=== PATIENT | male | born 1975 | race Caucasian/White ===

== ENCOUNTER 2016-12-15 10:45 | Emergency (ER) | payer OTHER ==
[2016-12-15 11:00] VITALS: BP 133/75; PULSE 96; TEMP 99.3; BMI 38.0
[2016-12-15] MEDS ORDERED: KETOROLAC TROMETHAMINE 60 MG/2 ML VIAL IM ONE (11:09)
[2016-12-15] MEDS ORDERED: guaiFENesin/CODEINE 10 ML UNIT-DOSE CUPS PO ONE (11:10)
[2016-12-15] MEDS ORDERED: guaiFENesin/CODEINE 10 ML UNIT-DOSE CUPS ONE (11:11)
[2016-12-15] MEDS ORDERED: KETOROLAC TROMETHAMINE 60 MG/2 ML VIAL ONE (11:11)
--- NOTE | 2016-12-15 11:15 | PDOC ---
History of Present Illness - General Chief Complaint: Cold Symptoms Stated Complaint: COUGH, FEVER, CHILLS, BODY ACHES Time Seen by Provider: 12/15/16 11:03 - History of Present Illness Initial Comments: 12/15/16 11:16 Chief complaint: Fever History of present illness: Patient with high fevers yesterday accompanied by bodyache, headache, head and nasal congestion, nonproductive cough. States that "everyone at work is sick". Did not receive the flu shot Review of systems: No chest pain, shortness of breath, abdominal pain, nausea, vomiting, diarrhea, visual or focal neurologic symptoms, unsteadiness of gait. Past medical history: Healthy male, no history of serious medical or surgical illness, hospitalizations, or home medication Social/family history: No tobacco alcohol or nonprescription drugs. Fully active and without disability Family history: Reviewed and noncontributory Physical exam: Alert and oriented 3, well-developed well-nourished, nasal congestion, nonproductive cough, but no significant distress, cooperative Afebrile, vital signs normal PERRLA 4 mm, fundi benign, nasal congestion with watery discharge, ears clear, throat mildly injected without exudate swelling or mass. Neck supple without bruit mass or nodes Lungs clear with full breath sounds throughout bilaterally. No wheezes rales or rhonchi CV S1 and S2 normal without murmur rub or gallop pulses full and symmetric no JVD or edema Abdomen benign Skin clear, no rash, adequate turgor and what mucous membranes Extremities no CCE Neurological intact Impression: Viral syndrome, probably influenza. Plan: Since symptoms are of approximately 24-hour duration, Tamiflu is indicated. The congestion and cough suppressant for comfort. Rest and fluids at home and follow-up if condition changes ER, otherwise primary physician 2-3 days. Past History - Past Medical History Allergies/Adverse Reactions: Allergies Allergy/AdvReac Type Severity Reaction Status Date / Time No Known Allergies Allergy Verified 12/15/16 10:51 Home Medications: Ambulatory Orders Ibuprofen 800 mg PO TID PRN #20 tablet 12/15/16 Oseltamivir Phosphate [Tamiflu] 75 mg PO BID #10 capsule 12/15/16 Promethazine/Phenyleph/Codeine [Phenergan VC+Codeine Syrup] 5 - 10 ml PO TID PRN #90 ml MDD 6 12/15/16 Suicide Attempt (Hx): No - Surgical History Abdominal Surgery: Yes (appendectomy as a child) Appendectomy: Yes - Psycho/Social/Smoking Cessation Hx Anxiety: No Suicidal Ideation: No Smoking History: Current some day smoker Have you smoked in the past 12 months: Yes Number of Cigarettes Smoked Daily: 0 Information on smoking cessation initiated: Yes 'Breaking Loose' booklet given: 12/15/16 Hx Alcohol Use: No Drug/Substance Use Hx: No Substance Use Type: None Respiratory Specific PMHX - Complaint Specific PMHX Angina: No Pulmonary Embolus: No *Physical Exam - Vital Signs Last Vital Signs Temp Pulse Resp BP Pulse Ox 99.3 F 96 H 15 133/75 97 12/15/16 10:50 12/15/16 10:50 12/15/16 10:50 12/15/16 10:50 12/15/16 10:50 Medical Decision Making - Medical Decision Making 12/15/16 11:35 Patient improved after administration of Toradol. Headache resolved. Body aches resolved. Rest, fluids, and medication as directed. Fully ambulatory and in no pain or other discomfort upon discharge with his to follow-up as directed. *DC/Admit/Observation/Transfer Diagnosis at time of Disposition: Influenza - Discharge Dispostion Disposition: HOME Condition at time of disposition: Improved Admit: No - Prescriptions Prescriptions: Promethazine/Phenyleph/Codeine [Phenergan VC+Codeine Syrup] 5 - 10 ml PO TID PRN #90 ml MDD 6 PRN Reason: congestion, cough Oseltamivir Phosphate [Tamiflu] 75 mg PO BID #10 capsule - Referrals Referrals: Nallely Mckinney MD [Staff Physician] - 2 Days - Patient Instructions Printed Discharge Instructions: DI for Viral Upper Respiratory Infection -- Adult - Post Discharge Activity Work/School Note: Back to Work
== END 2016-12-15 11:54 | disposition home or self-care (01) ==
LOC: FER 10:45
PROC: 3E0233Z Introduction of Anti-inflammatory into Muscle, Percutaneous Approach (ICD-10-PCS; principal; 2016-12-15)
DX: J11.1 Influenza due to unidentified influenza virus with other respiratory manifestations (principal); F17.210 Nicotine dependence, cigarettes, uncomplicated
CPT/HCPCS: 99281-25

== ENCOUNTER 2016-12-26 15:48 | Emergency (ER) | payer OTHER ==
--- NOTE | 2016-12-26 16:04 | PDOC ---
History of Present Illness <Merary Landeros - Last Filed: 12/26/16 16:49> - General History Source: Patient, Old Records Exam Limitations: No Limitations - History of Present Illness Initial Comments: 12/26/16 16:56 The patient is a 41 year old male, with no significant past medical history, who presents to the emergency department with nonradiating right sided chest pain since this morning. The patient describes the chest pain as sharp and notes that the chest pain is worse when coughing. The patient reports that he was most recently seen in this ED on 12/15/2016 and was diagnosed with a URI. Since then, the majority of his URI symptoms have resolved with the exception of the cough. The patient denies shortness of breath or palpitations. The patient denies fever, chills, headache, nausea, vomiting or any abdominal pain. The patient denies any trauma or injury. The patient does report sick contacts at work. Allergies: None reported. Past Surgical History: Appendectomy. Social History: Current someday smoker. Denies alcohol use. Reports occasional marijuana use. <Annie Castillo - Last Filed: 12/26/16 16:56> - General Chief Complaint: Pain Stated Complaint: RIGHT CHEST PAIN WHEN COUGHING Time Seen by Provider: 12/26/16 16:04 Past History - Past Medical History Suicide Attempt (Hx): No - Surgical History Abdominal Surgery: Yes (appendectomy as a child) Appendectomy: Yes - Psycho/Social/Smoking Cessation Hx Anxiety: No Suicidal Ideation: No Smoking History: Current some day smoker Have you smoked in the past 12 months: Yes Number of Cigarettes Smoked Daily: 0 'Breaking Loose' booklet given: 12/15/16 Hx Alcohol Use: No Drug/Substance Use Hx: No Substance Use Type: None <Merary Landeros - Last Filed: 12/26/16 16:49> <Annie Castillo - Last Filed: 12/26/16 16:56> - Past Medical History Allergies/Adverse Reactions: Allergies Allergy/AdvReac Type Severity Reaction Status Date / Time No Known Allergies Allergy Verified 12/15/16 10:51 Home Medications: Ambulatory Orders Ibuprofen 800 mg PO TID PRN #20 tablet 12/15/16 Oseltamivir Phosphate [Tamiflu] 75 mg PO BID #10 capsule 12/15/16 Promethazine/Phenyleph/Codeine [Phenergan VC+Codeine Syrup] 5 - 10 ml PO TID PRN #90 ml MDD 6 12/15/16 Review of Systems - Review of Systems Able to Perform ROS?: Yes Comments:: 12/26/16 16:52 GENERAL/CONSTITUTIONAL: No fever or chills. No weakness. HEAD, EYES, EARS, NOSE AND THROAT: No change in vision. No ear pain or discharge. No sore throat. CARDIOVASCULAR: +Chest pain. No shortness of breath. RESPIRATORY: +Cough. No wheezing or hemoptysis. GASTROINTESTINAL: No nausea, vomiting, diarrhea or constipation. GENITOURINARY: No dysuria, frequency, or change in urination. MUSCULOSKELETAL: No joint or muscle swelling or pain. No neck or back pain. SKIN: No rash. NEUROLOGIC: No headache, vertigo, loss of consciousness, or change in strength/ sensation. ENDOCRINE: No increased thirst. No abnormal weight change. HEMATOLOGIC/LYMPHATIC: No anemia, easy bleeding, or history of blood clots. ALLERGIC/IMMUNOLOGIC: No hives or skin allergy. <Annie Castillo - Last Filed: 12/26/16 16:56> *Physical Exam - Vital Signs Last Vital Signs Temp Pulse Resp BP Pulse Ox 98.0 F 90 16 138/87 98 12/26/16 16:01 12/26/16 16:01 12/26/16 16:01 12/26/16 16:01 12/26/16 16:01 - Physical Exam Comments: 12/26/16 16:52 GENERAL: Awake, alert, and fully oriented, in no acute distress. HEAD: No signs of trauma. EYES: PERRLA, EOMI, sclera anicteric, conjunctiva clear. ENT: Auricles normal inspection, hearing grossly normal, nares patent, oropharynx clear without exudates. Moist mucosa. NECK: Normal ROM, supple, no lymphadenopathy, JVD, or masses. LUNGS: Breath sounds equal, clear to auscultation bilaterally. No wheezes, and no crackles. HEART: Regular rate and rhythm, normal S1 and S2, no murmurs, rubs or gallops. ABDOMEN: Soft, nontender, normoactive bowel sounds. No guarding, no rebound. No masses. EXTREMITIES: Normal range of motion, no edema. No clubbing or cyanosis. No cords, erythema, or tenderness. NEUROLOGICAL: Cranial nerves II through XII intact. Normal speech, normal gait. SKIN: Warm, dry, normal turgor, no rashes or lesions noted. <Annie Castillo - Last Filed: 12/26/16 16:56> Heart Score/ECG Review - ECG Impressions Comment:: EKG read 16:27- NSR 93 bpm, no acute ST/T changes <Merary Landeros - Last Filed: 12/26/16 16:49> *DC/Admit/Observation/Transfer - Discharge Dispostion Admit: No <Merary Landeros - Last Filed: 12/26/16 16:49> - Attestations Scribe Attestion: 12/26/16 16:51 Documentation prepared by Annie Castillo, acting as medical reimbursement specialist for Merary Landeros MD. <Annie Castillo - Last Filed: 12/26/16 16:56> Diagnosis at time of Disposition: Pleurisy, Cough - Discharge Dispostion Disposition: HOME Condition at time of disposition: Stable - Patient Instructions Printed Discharge Instructions: DI for Cough -- Adult Additional Instructions: Robitussin AC as prescribed if needed for cough. Motrin for chest pain. Return to the ER if the pain worsens, if you become short of breath, if your fever returns, or if your cough becomes productive.
[2016-12-26 16:20] VITALS: BP 138/87; PULSE 90; TEMP 98; BMI 38.0
[2016-12-26] MEDS ORDERED: IBUPROFEN 600 MG TABLET (FP) PO ONE ×2 (16:46→16:57)
--- NOTE | 2016-12-27 18:06 | EKG ---
Test Reason : Blood Pressure : / mmHG Vent. Rate : 093 BPM Atrial Rate : 093 BPM P-R Int : 156 ms QRS Dur : 088 ms QT Int : 354 ms P-R-T Axes : 040 036 008 degrees QTc Int : 440 ms NORMAL SINUS RHYTHM NO PREVIOUS ECGS AVAILABLE Confirmed by MD JACE, OSITO ([id number]) on 12/27/2016 6:06:02 PM Referred By: Jaleel SKINNER Confirmed By:OSITO MCCORMICK MD
== END 2016-12-26 17:07 | disposition home or self-care (01) ==
LOC: FER 15:48
DX: R09.1 Pleurisy (principal); R05 Cough; F17.210 Nicotine dependence, cigarettes, uncomplicated
CPT/HCPCS: 71020-TC; 93005; 99282-25